=== PATIENT | male | born 1995 | race African-American/Black ===

== ENCOUNTER 2019-07-22 11:02 | Emergency (ER) | payer OTHER ==
[2019-07-22] MEDS ORDERED: IBUPROFEN 600 MG TABLET (FP) PO ONE ×2 (11:14→11:17)
[2019-07-22 11:16] VITALS: BP 139/79; PULSE 63; TEMP 97.7; BMI 33.3
--- NOTE | 2019-07-22 11:38 | PDOC ---
History of Present Illness - General Chief Complaint: Injury Stated Complaint: LEFT FOOT AND ANKLE INJURY Time Seen by Provider: 07/22/19 11:11 History Source: Patient, Family Exam Limitations: No Limitations - History of Present Illness Initial Comments: 07/22/19 11:35 CHIEF COMPLAINT: Left foot and ankle pain since Tuesday HISTORY OF PRESENT ILLNESS: 24-year-old man with a history of asthma presents complaining of an injury to his left foot and ankle. He was using a motorized fork alok on Tuesday when it hit the front of his left ankle and the top of his left foot. He has been having some discomfort and walking with a limp since that time. He comes in now for a check of his injury. There was no skin break. REVIEW OF SYSTEMS: No fever or chills Positive left ankle and foot pain Positive limping due to left ankle and foot pain No other joint injuries No skin break Past History - Past Medical History Allergies/Adverse Reactions: Allergies Allergy/AdvReac Type Severity Reaction Status Date / Time No Known Allergies Allergy Verified 07/22/19 11:03 Home Medications: Ambulatory Orders Ibuprofen 600 mg PO TID PRN #20 tablet 07/22/19 Asthma: Yes COPD: No - Immunization History Immunization Up to Date: Yes - Suicide/Smoking/Psychosocial Hx Smoking Status: No Smoking History: Never smoked Number of Cigarettes Smoked Daily: 0 Information on smoking cessation initiated: No Hx Alcohol Use: No Drug/Substance Use Hx: No Substance Use Type: None *Physical Exam - Vital Signs Last Vital Signs Temp Pulse Resp BP Pulse Ox 97.7 F 63 16 139/79 100 07/22/19 11:03 07/22/19 11:03 07/22/19 11:03 07/22/19 11:03 07/22/19 11:03 - Physical Exam Comments: 07/22/19 11:37 GENERAL: The patient is awake, alert, and fully oriented, in no acute distress. Is walking with a slight limp. HEAD: Normal with no signs of trauma. EYES: Pupils equal, round and reactive to light, extraocular movements intact, sclera anicteric, conjunctiva clear. EXTREMITIES: The left leg is normal above the ankle. The left ankle shows no signs of skin break or swelling. There is some tenderness over the anterior aspect of the ankle. The left foot shows no skin break or swelling. There is tenderness over the dorsal aspect of the metatarsal bones on top of the midfoot. There is no ecchymosis. There is no erythema. There is no significant swelling. NEUROLOGICAL: Normal speech, mildly antalgic gait. PSYCH: Normal mood, normal affect. SKIN: Warm, Dry, normal turgor, no rashes or lesions noted. ED Treatment Course - RADIOLOGY Radiology Studies Ordered: Category Date Time Status ANKLE & FOOT-LEFT* [RAD] Stat Radiology 07/22/19 11:15 Ordered - Medications Given in the ED: ED Medications Discontinued Medications Generic Name Dose Route Start Last Admin Trade Name Freq PRN Reason Stop Dose Admin Ibuprofen 600 mg 07/22/19 11:14 07/22/19 11:18 Motrin - PO 07/22/19 11:15 600 mg ONCE ONE Administration Medical Decision Making - Medical Decision Making 07/22/19 12:05 Patient with injury to his left foot and ankle from Tuesday. He is complaining of pain and discomfort with weightbearing. On examination, there is no significant swelling. There is mild anterior ankle and dorsal foot tenderness. There is no ecchymosis or skin break. Initial impression: Contusion to the left ankle and foot. Rule out fracture. Plan: X-ray: 5 views of the left ankle and foot were performed and reviewed by me. There is no fracture or dislocation. Final radiology reading is pending at the time of disposition. Radiology follow-up protocol activated. Final impression: Left foot and ankle contusion. Plan: Ibuprofen, ice, elevation, Aldo wrap. Follow-up in one week if not improved. *DC/Admit/Observation/Transfer Diagnosis at time of Disposition: Contusion of left ankle or foot - Discharge Dispostion Disposition: HOME Condition at time of disposition: Stable Decision to Admit order: No - Prescriptions Prescriptions: Ibuprofen 600 mg PO TID PRN #20 tablet PRN Reason: Pain - Referrals Referrals: Rober Valle MD [Staff Physician] - 1 week - Patient Instructions Printed Discharge Instructions: DI for Ankle Sprain Additional Instructions: Today you were evaluated for an injury to your left foot and ankle. The x-rays of the foot and ankle show no broken bones. This is a soft tissue injury, meaning that it will heal with some rest and some time. Rest, elevate the ankle , apply ice packs for 30 minutes every few hours as needed. Use the Aldo wrap when off and remove it at night. Follow-up with the orthopedic doctor, Dr. Rober Valle, in one week if the symptoms have not improved. Return to the emergency department for any severe or progressive symptoms. - Post Discharge Activity
== END 2019-07-22 12:16 | disposition home or self-care (01) ==
LOC: FER 11:02
DX: S90.02XA Contusion of left ankle, initial encounter (principal); W22.8XXA Striking against or struck by other objects, initial encounter; Y93.89 Activity, other specified; Y92.89 Other specified places as the place of occurrence of the external cause; Y99.0 Civilian activity done for income or pay
CPT/HCPCS: 73610-TC-LT-FY; 73630-TC-LT; 99281-25

== ENCOUNTER 2021-03-27 21:40 | Emergency (ER) | payer OTHER ==
[2021-03-27 21:58] VITALS: BP 134/79; PULSE 75; TEMP 97.9; BMI 39.7
[2021-03-27] MEDS ORDERED: NAPROXEN 500 MG TABLET PO ONE (22:37)
[2021-03-27] MEDS ORDERED: NAPROXEN 500 MG TABLET ONE (22:49)
== END 2021-03-27 22:52 | disposition home or self-care (01) ==
LOC: FER 21:40
DX: S29.011A Strain of muscle and tendon of front wall of thorax, initial encounter (principal)
CPT/HCPCS: 93005; 99284-25